=== PATIENT | female | born 1955 | race Caucasian/White ===

== ENCOUNTER 2019-03-28 11:56 | Emergency (ER) | payer BC ==
[2019-03-28] MEDS ORDERED: IBUPROFEN 600 MG TABLET ONE (12:08)
== END 2019-03-28 12:33 | disposition home or self-care (01) ==
LOC: EDH 11:56
DX: S63.591A Other specified sprain of right wrist, initial encounter (principal); Z95.2 Presence of prosthetic heart valve; Z86.73 Personal history of transient ischemic attack (TIA), and cerebral infarction without residual deficits; Z88.5 Allergy status to narcotic agent; Z88.6 Allergy status to analgesic agent; W01.0XXA Fall on same level from slipping, tripping and stumbling without subsequent striking against object, initial encounter; Y93.89 Activity, other specified; Y92.098 Other place in other non-institutional residence as the place of occurrence of the external cause; Y99.8 Other external cause status
CPT/HCPCS: 73110